=== PATIENT | male | born 1975 | race Two or more races ===

== ENCOUNTER 2018-12-14 03:33 | Emergency (ER) | payer MEDICAID ==
[~2018-12-14] VITALS: Ht 175.3 cm; Wt 88.0 kg
--- NOTE | 2018-12-14 03:51 | NUR ---
[employer] AT BEDSIDE FOR BLOOD DRAW.
[2018-12-14 03:59] LABS: BASOPHILS # (AUTO) 0.1 /CMM (0.0-0.2); BASOPHILS % (AUTO) 1.1 % (0.0-2.0); EOSINOPHILS % (AUTO) 5.6 % (0.0-6.0); HEMATOCRIT 43 % (39-51); HEMOGLOBIN 14.5 g/dL (13.5-17.5); LYMPHOCYTES # (AUTO) 2.3 /CMM (0.8-4.8); LYMPHOCYTES % (AUTO) 46.3 % (20.0-44.0); MEAN CORPUSCULAR HGB CONC 34 g/dl (31.0-36.0); MEAN CORPUSCULAR VOLUME 91 fL (80-96); MONOCYTES # (AUTO) 0.6 /CMM (0.1-1.30); MONOCYTES % (AUTO) 11.6 % (2.0-12.0); NEUTROPHILS # (AUTO) 1.7 /CMM (1.8-8.9); NEUTROPHILS % (AUTO) 35.4 % (43.0-81.0); PLATELET COUNT (AUTO) 161 /CMM (150-450); RED BLOOD CELL COUNT(AUTO) 4.73 MIL/uL (4.5-6.0); WHITE BLOOD COUNT (AUTO) 4.9 K/uL (4.3-11.0)
[2018-12-14 04:17] LABS: ALBUMIN 3.6 g/dL (3.4-5.0); BILIRUBIN,DIRECT 0.1 mg/dL (0.0-0.2); BILIRUBIN,TOTAL 0.2 mg/dL (0.2-1.0); CALCIUM, SERUM 8.6 mg/dL (8.5-10.1); CREATININE 0.7 mg/dL (0.6-1.3); POTASSIUM 3.4 mmol/L (3.5-5.1); SALICYLATE 3.1 mg/dL (2.8-20.0); TOTAL PROTEIN, SERUM 6.6 g/dL (6.4-8.2)
--- NOTE | 2018-12-14 07:37 | NUR ---
PT STABLE AND SLEEPING,
--- NOTE | 2018-12-14 08:26 | NUR ---
PT REFUSED URINE AND STOOL AT THIS TIME MD BELLA
--- NOTE | 2018-12-14 08:46 | NUR ---
CALLED [facility] [phone]
--- NOTE | 2018-12-14 09:08 | NUR ---
PT SLEEPING, WAITING PSYCH CONSULT
--- NOTE | 2018-12-14 09:13 | NUR ---
[PT REQUESTED SOME WATER AND STATED HE WILL TRY TO GIVE ME URINE, AWARE
[2018-12-14] MEDS ORDERED: OLANZAPINE 5 MG TABLET PO ONE (13:00)
--- NOTE | 2018-12-14 13:15 | NUR ---
PT AWAITING CLOTHES
--- NOTE | 2018-12-14 13:53 | NUR ---
PT RECIEVED CLOTHES AND LEFT ER WITHOUT PAPER WORK,PT LEFT STABLE
[2018-12-14 14:11] VITALS: BP 98/60
--- NOTE | 2018-12-14 14:12 | NUR ---
Patient discharged to home in stable condition. Written and verbal after care instructions given. Patient verbalizes understanding of instruction.
== END 2018-12-14 14:13 | disposition home or self-care (01) ==
LOC: ER 03:33
DX: R44.0 Auditory hallucinations (principal); F10.129 Alcohol abuse with intoxication, unspecified; Z59.0 Homelessness; Y90.7 Blood alcohol level of 200-239 mg/100 ml
CPT/HCPCS: 36415; 80048; 80076; 80307; 80329; 85025; 99284; A4606; G0480